=== PATIENT | male | born 1935 | race Caucasian/White ===

== ENCOUNTER 2016-10-02 16:04 | Emergency (ER) | payer OTHER, MEDICARE ==
[~2016-10-02 16:04] MED LIST: ALDACTONE25 MG PO; AMARYL 2 MG2 MG PO; ASPIRIN EC81 M1 PO; COUMADIN1 M1 PO; FENOFIBRATE145 M1 PO; LASIX20 M1 PO; LASIX40 M1 PO; LOPRESSOR50 M1 PO; LOVAZA1 G1 PO; NIACIN500 M6 PO; SOTALOL80 M1 PO; ZESTRIL20 M1 PO; ZETIA10 M1 PO; ZOCOR20 M1 PO
[2016-10-02 16:12] VITALS: BP 150/72
--- NOTE | 2016-10-02 16:39 | ED ANKLE/FOOT INJURY COMPLAINT ---
History of Present Illness General Chief Complaint: Foot or Ankle Injury Stated Complaint: PT HAS PAIN IN BOTH FEET,LEFT FOOT BIG TOE IS RED Source: patient Exam Limitations: no limitations Allergies Coded Allergies: metformin (CAUSED PT TO LOSE MIND AND BECOME CONFUSED 04/04/16) Reconcile Medications Aspirin (Ecotrin*) 81 MG TABLET.DR 1 TAB PO 1900 HEART HEALTH (Reported) Cephalexin (Keflex) 500 MG CAPSULE 1 CAP PO TID toe cellulitis Ezetimibe (Zetia) 10 MG TABLET 1 TAB PO 1900 HLD (Reported) Fenofibrate Nanocrystallized (Fenofibrate) 145 MG TABLET 1 TAB PO QAM CHOLESTEROL (Reported) Furosemide (Lasix) 20 MG TABLET 1 TAB PO QAM DIURETIC/BP (Reported) Lisinopril (Zestril) 20 MG TABLET 1 TAB PO 0700 CHF (Reported) Metoprolol Tartrate (Lopressor) 50 MG TABLET 1 TAB PO QAM HEART/BP (Reported) Niacinamide (Niacin) 500 MG TABLET 1 TAB PO 1700 HLD (Reported) [place]-3 Acid Ethyl Esters (Lovaza) 1 GRAM CAPSULE 4 CAP PO 0700 HLD (Reported ) Simvastatin (Zocor*) 20 MG TABLET 1 TAB PO 1700 HLD (Reported) Sotalol HCl (Sotalol) 80 MG TABLET 1 TAB PO 0700, 1500 AFIB (Reported) Spironolactone (Aldactone) 25 MG TABLET 0.5 TAB PO 0700 CHF (Reported) Warfarin Sodium (Coumadin) 1 MG TABLET 1 TAB PO QHS BLOOD THINNER (Reported) Triage Note: PER PT FOOT PAIN BILAT X 3 WEEKS GOT BETTER, BUT GREAT TOES BILAT ARE RED AND PINCHING, SAW DR HOANG TOLD IT COULD BE GOUT. BILT GREAT TOES REDDENED NOT WARM, NO SWELLING Triage Nurses Notes Reviewed? yes HPI: Patient is an 80-year-old male presents complaining of left great toe pain and redness. Patient reports this can mild redness for approximately 2-3 weeks. Redness worsening over the past 3-4 days with increasing pain. Pain is mild, worsens with palpation. Patient reports some decreased energy over the past 3-4 days. Patient denies fevers, chills, recent trauma. (NIK LEWIS,TOMAS) Vital Signs & Intake/Output Vital Signs & Intake/Output Vital Signs Date Time Temp Pulse Resp B/P B/P Pulse O2 O2 Flow FiO2 Mean Ox Delivery Rate 10/02 1646 Room Air 10/02 1612 97.2 79 20 150/72 99 Past History Travel History Traveled to [place] past 21 day No Medical History Any Pertinent Medical History? see below for history Neurological: NONE EENT: NONE Cardiovascular: hypertension, myocardial infarction, HIGH CHOLESTEROL DEFIB Respiratory: NONE Gastrointestinal: NONE Hepatic: NONE Renal: NONE Musculoskeletal: NONE Psychiatric: NONE Endocrine: diabetes Blood Disorders: NONE Cancer(s): NONE AWS SOLUTION ARCHITECT/Reproductive: NONE Influenza Vaccine: 03/08/15 Surgical History Surgical History: pacemaker/defibrillator Psychosocial History Who do you live with Patient/Self Services at Home None What is your primary language Occitan Tobacco Use: Never used Family History Family History, If Any: BROTHER FH: myocardial infarction Hx Contributory? No (TOMAS CH) Review of Systems Review of Systems Constitutional: Reports: malaise. Denies: chills, fever. EENTM: Reports: no symptoms. Respiratory: Denies: cough, short of breath. Cardiovascular: Denies: chest pain. GI: Denies: abdominal pain, vomiting. Musculoskeletal: Reports: see HPI. Skin: Reports: see HPI. Neurological/Psychological: Reports: no symptoms. Hematologic/Endocrine: Reports: no symptoms. Immunologic/Allergic: Reports: no symptoms. (TOMAS CH) Physical Exam Physical Exam General Appearance: well developed/nourished, alert, awake Head: atraumatic, normal appearance Eyes: Bilateral: normal appearance. Ears, Nose, Throat: hearing grossly normal Neck: normal inspection, supple, full range of motion Cardiovascular/Respiratory: no respiratory distress Back: normal inspection, normal range of motion Leg/Knee/Thigh Left: normal range of motion, normal inspection Leg/Knee/Thigh Right: normal range of motion, normal inspection Ankle Left: normal inspection, normal range of motion Ankle Right: normal inspection, normal range of motion Foot Left: erythema with some tenderness to the left medial great toe adjacent to the toe nail. No discharge., thickened and discolored toenails to all toes Foot Right: normal inspection, normal range of motion, thickened and discolored toenails to all toes Neuro/Vascular: normal motor function, normal sensation Tendon: normal tendon function Psychiatric: awake, alert, oriented x 3 (TOMAS CH) Progress Differential Diagnosis: cellulitis, septic arthritis, gout, osteomyelitis, ingrown toenail (TOMAS CH) Plan of Care: Orders Procedure Date/time Status FingerStick- Glucose 10/02 1640 Active Patient afebrile, nontoxic-appearing. Discussed with and seen by Dr. Rondon. Suspect localized cellulitis. No ulcerations or signs of necrotic tissue. Low suspicion osteomyelitis. Patient appears stable for discharge with outpatient follow-up. (TOMAS CH) Departure Departure Disposition: HOME OR SELF CARE Condition: Stable Clinical Impression Primary Impression: Cellulitis of toe Referrals: ALICIA RUEDA,SCOTT MAX MD,You MARINO (PCP/Family) Additional Instructions: Follow-up with Dr. Giron (operations advisor) for further evaluation. Return to the emergency department if redness spreading, fevers, increasing pain, or worsening of symptoms. Departure Forms: Customer Survey General Discharge Information Prescriptions: Current Visit Scripts Cephalexin (Keflex) 1 CAP PO TID #21 CAP (TOMAS CH) PA/BLINDMAKER Co-Sign Statement Statement: ED Attending supervision documentation- [X] I saw and evaluated the patient. I have also reviewed all the pertinent lab results and diagnostic results. I agree with the findings and the plan of care as documented in the PA's/BLINDMAKER's documentation. [] I have reviewed the ED Record and agree with the PA's/BLINDMAKER's documentation. [] Additions or exceptions (if any) to the PAs/BLINDMAKER's note and plan are summarized below: [] (SANJANA BURGESS,JEANCARLOS Rosenberg)
[2016-10-02] MEDS ORDERED: KEFLEX500 M1 PO (16:43)
== END 2016-10-02 16:57 ==
LOC: ERH 16:04
DX: L03.032 Cellulitis of left toe (principal)